=== PATIENT | female | born 1950 | race Caucasian/White ===

== ENCOUNTER 2018-04-30 12:39 | Emergency (ER) | payer MEDICARE ==
[2018-04-30] MEDS ORDERED: Morphine 4 MG/ML VIAL ONE ×2 (13:07→14:11)
--- NOTE | 2018-04-30 13:27 | RAD ---
RIGHT KNEE 4 VIEWS: Date: 04/30/18 PROVIDED CLINICAL HISTORY: Right knee pain status post injury. FINDINGS: There is no evidence for fracture or other acute osseous abnormality. Degenerative changes are seen. If there is persistent clinical concern, conservative management and follow-up imaging are advised. IMPRESSION: As above. POS: TPC
== END 2018-04-30 14:40 | disposition home or self-care (01) ==
LOC: MADERS 12:39
DX: S80.01XA Contusion of right knee, initial encounter (principal); M19.90 Unspecified osteoarthritis, unspecified site; F17.210 Nicotine dependence, cigarettes, uncomplicated; W17.89XA Other fall from one level to another, initial encounter
CPT/HCPCS: 96372; J2270

== ENCOUNTER 2018-07-14 09:21 | Outpatient (CLI) | payer MEDICARE ==
[2018-07-14 10:57] LABS: ALT (SGPT) 16 U/L (8-55); AST (SGOT) 17 U/L (5-34); Albumin 4.2 g/dL (3.4-4.8); Alkaline Phosphatase 113 U/L (40-150); Bilirubin, Direct 0.1 mg/dL (0.1-0.3); Bilirubin, Total 0.4 mg/dL (0.2-1.2); Cardiac Risk 4.3 (Less than 4.5); Cholesterol 269 mg/dl (< 200 Desired); HDL Cholesterol 62 mg/dL (>60 Neg Risk); LDL Cholesterol, Calculated 181 mg/dL; Protein, Total 6.8 g/dL (6.0-8.3); Triglycerides 128 mg/dL (Less than 150)
== END 2018-07-14 09:22 | disposition home or self-care (01) ==
LOC: MADLAB 09:21
PROVIDERS: ATTEND Specialist
DX: E78.2 Mixed hyperlipidemia (principal); I25.10 Atherosclerotic heart disease of native coronary artery without angina pectoris; Z79.899 Other long term (current) drug therapy
CPT/HCPCS: 36415; 80061; 80076

== ENCOUNTER 2018-10-09 10:02 | Outpatient (CLI) | payer MEDICARE ==
--- NOTE | 2018-10-09 12:50 | ULT ---
RENAL ULTRASOUND: HISTORY: Abnormal labs, chronic renal disease. FINDINGS: The right kidney measures 10.6 cm in length without focal mass or hydronephrosis. The left kidney is not visualized. The urinary bladder is unremarkable. IMPRESSION: 1. Unremarkable right kidney. 2. Nonvisualization of the left kidney likely due to marked atrophy. POS: [id number]
== END 2018-10-09 10:03 | disposition home or self-care (01) ==
LOC: MADULT 10:02
PROVIDERS: ATTEND Internal Medicine Nephrology
DX: N18.3 Chronic kidney disease, stage 3 (moderate) (principal)
CPT/HCPCS: 76775

== ENCOUNTER 2019-02-12 16:54 | Emergency (ER) | payer MEDICARE ==
[2019-02-12 18:37] LABS: #Basophils 0.1 thou/uL (0.0-0.2); #Eosinphils 0.1 thou/uL (0.0-0.7); #Lymphocytes 1.9 thou/uL (1.20-3.40); #Monocytes 0.7 thou/uL (0.11-0.59); #Neutrophils 5.9 thou/uL (1.40-6.50); %Basophils 0.8 % (0.0-1.0); %Lymphocytes 21.7 % (21.0-51.0); %Monocytes 8.2 % (0.0-10.0); %Neutrophils 68.3 % (42.0-75.0); Hemoglobin 11.5 g/dL (12.0-16.0); Mean Corpuscular HGB CONC 31.6 g/dL (32.0-36.0); Mean Corpuscular Hemoglobin 30.8 pg (27.0-31.0); Mean Corpuscular Volume 97.7 fL (78.0-98.0); Mean Platelet Volume 10.5 fL (7.4-10.4); Platelet Count 153 thou/uL (130-400); RBC Distribution Width 13.7 % (11.5-14.5); Red Blood Cell (RBC) Count 3.74 mill/uL (4.20-5.40); White Blood Cell (WBC) Count 8.6 thou/uL (4.8-10.8)
[2019-02-12 18:50] LABS: Glucose, Urine (Dipstick) 250 mg/dL (Negative)
[2019-02-12 18:51] LABS: ALT (SGPT) 15 U/L (8-55); AST (SGOT) 16 U/L (5-34); Albumin 4.2 g/dL (3.4-4.8); Alkaline Phosphatase 110 U/L (40-150); Anion Gap 15 mmol/L (10-20); BUN (Urea Nitrogen) 19 mg/dL (9.8-20.1); Bilirubin, Total 0.3 mg/dL (0.2-1.2); Calc. Creatinine Clearance 0 mL/min (70-130); Calcium 9.5 mg/dL (7.8-10.44); Carbon Dioxide 24 mmol/L (23-31); Chloride 107 mmol/L (98-107); Estimated GFR-MDRD 40; Globulin 2.8 g/dL (2.4-3.5); Glucose 93 mg/dL (80-115); Potassium 4.4 mmol/L (3.5-5.1); Sodium 142 mmol/L (136-145)
[2019-02-12 18:53] LABS: Clarity Hazy (Clear)
[2019-02-12 18:54] LABS: Leukocyte Unable to Interpret (Negative); Nitrite Unable to Interpret (Negative); Protein, Urine (Dipstick) Unable to Interpret mg/dL (Neg-Trace); Specific Gravity, Urine 1.004 (1.002-1.036)
[2019-02-12 18:55] LABS: Bilirubin Unable to Interpret (Negative); Blood, Urine Unable to Interpret (Negative); Urobilinogen UNABLE TO INTERPRET mg/dL (0.2-1.0); WBC/HPF 21-50 HPF (0-3)
[2019-02-12 18:56] LABS: Bacteria/HPF 2+ HPF (None Seen); Squamous Epithelial 0-3 HPF (0-3)
[2019-02-12] MEDS ORDERED: cefTRIAXone\\ROCEPHIN 1 GM VIAL ONE (19:19)
[2019-02-12] MEDS ORDERED: Lidocaine 2% 20 ml MDV ONE (19:20)
== END 2019-02-12 19:44 | disposition home or self-care (01) ==
LOC: MADERS 16:54
DX: N39.0 Urinary tract infection, site not specified (principal); M06.9 Rheumatoid arthritis, unspecified; I73.9 Peripheral vascular disease, unspecified; F17.210 Nicotine dependence, cigarettes, uncomplicated; Z79.01 Long term (current) use of anticoagulants; Z79.899 Other long term (current) drug therapy; Z79.51 Long term (current) use of inhaled steroids
CPT/HCPCS: 36415; 81003; 81015; 85025; 87077; 87086; 96372; J0696; J2001

== ENCOUNTER 2019-03-29 23:44 | Emergency (ER) | payer MEDICARE ==
[2019-03-29] MEDS ORDERED: Nitroglycerin 0.4 MG TAB 1 EACH ONE (23:53)
[2019-03-29] MEDS ORDERED: Aspirin Chewable 81 MG TAB ONE (23:53)
[2019-03-30] MEDS ORDERED: Nitroglycerin 2% Ointment 1 INCH/1 GM Packet ONE (00:05)
[2019-03-30 00:25] LABS: ALT (SGPT) 17 U/L (8-55); AST (SGOT) 20 U/L (5-34); Albumin 4.1 g/dL (3.4-4.8); Alkaline Phosphatase 114 U/L (40-150); Anion Gap 15 mmol/L (10-20); BUN (Urea Nitrogen) 17 mg/dL (9.8-20.1); Bilirubin, Total 0.2 mg/dL (0.2-1.2); Calc. Creatinine Clearance 0 mL/min (70-130); Calcium 9.2 mg/dL (7.8-10.44); Carbon Dioxide 21 mmol/L (23-31); Chloride 107 mmol/L (98-107); Estimated GFR-MDRD 41; Globulin 2.9 g/dL (2.4-3.5); Glucose 99 mg/dL (80-115); Sodium 139 mmol/L (136-145)
[2019-03-30 00:34] LABS: #Basophils 0.1 thou/uL (0.0-0.2); #Eosinphils 0.2 thou/uL (0.0-0.7); #Lymphocytes 2.9 thou/uL (1.20-3.40); #Monocytes 0.7 thou/uL (0.11-0.59); %Basophils 1.5 % (0.0-1.0); %Eosinophils 2.4 % (0.0-10.0); %Lymphocytes 36.2 % (21.0-51.0); %Monocytes 9.2 % (0.0-10.0); %Neutrophils 50.7 % (42.0-75.0); Hemoglobin 11.8 g/dL (12.0-16.0); Mean Corpuscular HGB CONC 33.3 g/dL (32.0-36.0); Mean Corpuscular Volume 96.2 fL (78.0-98.0); Mean Platelet Volume 10.9 fL (7.4-10.4); Platelet Count 148 thou/uL (130-400); RBC Distribution Width 13.5 % (11.5-14.5); Red Blood Cell (RBC) Count 3.69 mill/uL (4.20-5.40); White Blood Cell (WBC) Count 7.9 thou/uL (4.8-10.8)
[2019-03-30] MEDS ORDERED: Nitroglycerin 0.4 MG TAB 1 EACH ONE (01:42)
--- NOTE | 2019-03-30 07:35 | RAD ---
Chest one view HISTORY: Small bowel obstruction. Dyspnea. COMPARISON: 02/02/2014. FINDINGS: Cardiac silhouette is magnified by projection and upper limits of normal in size. Pulmonary vasculature is also upper limits of normal. Mediastinum is midline. No lobar consolidation or evidence of pneumothorax. IMPRESSION: Borderline pulmonary vascular congestion. No florid edema is evident.
== END 2019-03-30 01:43 | disposition short-term general hospital (02) ==
LOC: MADERS 23:44
DX: R07.2 Precordial pain (principal); M06.9 Rheumatoid arthritis, unspecified; F17.210 Nicotine dependence, cigarettes, uncomplicated; Z79.899 Other long term (current) drug therapy; Z79.51 Long term (current) use of inhaled steroids
CPT/HCPCS: 36415; 71045; 80053; 83880; 84484; 85025; 93005

== ENCOUNTER 2019-07-30 23:46 | Emergency (ER) | payer MEDICARE ==
[2019-07-30] MEDS ORDERED: cefTRIAXone\\ROCEPHIN 1 GM VIAL ONE (23:59)
== END 2019-07-31 00:20 | disposition home or self-care (01) ==
LOC: MADERS 23:46
DX: N39.0 Urinary tract infection, site not specified (principal); M06.9 Rheumatoid arthritis, unspecified; M79.7 Fibromyalgia; F17.210 Nicotine dependence, cigarettes, uncomplicated; Z79.899 Other long term (current) drug therapy; Z79.01 Long term (current) use of anticoagulants
CPT/HCPCS: 96372; 99283; J0696

== ENCOUNTER 2020-07-16 17:12 | Emergency (ER) | payer MEDICARE ==
[2020-07-16 17:56] LABS: Bilirubin Negative (Negative); Blood, Urine Negative (Negative); Glucose, Urine (Dipstick) Negative (Negative); Ketone, Urine Negative (Negative); Leukocyte Negative (Negative); Nitrite Positive (Negative); Protein, Urine (Dipstick) 30 mg/dL (Neg-Trace); Urobilinogen 0.2 mg/dL (Less than 2); pH, Urine 5.5 (5.0-9.0)
[2020-07-16 17:57] LABS: Clarity Hazy (Clear); Specific Gravity, Urine 1.025 (1.002-1.036)
[2020-07-16 18:00] LABS: Bacteria/HPF 3+ HPF (None Seen); RBC/HPF 0-3 HPF (0-3)
[2020-07-16 18:15] LABS: #Basophils 0.1 thou/uL (0.0-0.2); #Eosinphils 0.1 thou/uL (0.0-0.7); #Lymphocytes 1.8 thou/uL (1.20-3.40); #Neutrophils 8.2 thou/uL (1.40-6.50); %Basophils 1.2 % (0.0-1.0); %Eosinophils 1.2 % (0.0-10.0); %Monocytes 8.4 % (0.0-10.0); %Neutrophils 73.2 % (42.0-75.0); Anisocytosis SLIGHT = 6-15 cells (100X) (0-5/hpf); Hemoglobin 11.4 g/dL (12.0-16.0); Hypochromia SLIGHT = 6-15 cells (100X) (0-5/hpf); Large Platelets SLIGHT; MDiff Complete? YES; Mean Corpuscular HGB CONC 31.7 g/dL (32.0-36.0); Mean Corpuscular Hemoglobin 30.1 pg (27.0-31.0); Mean Platelet Volume 12.2 fL (7.4-10.4); Microcytosis SLIGHT = 6-15 cells (100X) (0-5/hpf); Platelet Count 164 thou/uL (130-400); Platelet Morphology Comment Appears Adequate; RBC Distribution Width 14.3 % (11.5-14.5); Red Blood Cell (RBC) Count 3.78 mill/uL (4.20-5.40); Stomatocytes SLIGHT = 2-5 cells (100X) (0-1/hpf); White Blood Cell (WBC) Count 11.2 thou/uL (4.8-10.8)
[2020-07-16 18:24] LABS: ALT (SGPT) 28 U/L (8-55); AST (SGOT) 25 U/L (5-34); Albumin 4.4 g/dL (3.4-4.8); Alkaline Phosphatase 99 U/L (40-110); Anion Gap 15 mmol/L (10-20); BUN (Urea Nitrogen) 24 mg/dL (9.8-20.1); Bilirubin, Total 0.3 mg/dL (0.2-1.2); Calc. Creatinine Clearance 0 mL/min (70-130); Calcium 9.3 mg/dL (7.8-10.44); Carbon Dioxide 22 mmol/L (23-31); Chloride 108 mmol/L (98-107); Estimated GFR-MDRD 45; Glucose 102 mg/dL (80-115); Lipase 23 U/L (8-78); Potassium 3.9 mmol/L (3.5-5.1); Protein, Total 7.4 g/dL (6.0-8.3); Sodium 141 mmol/L (136-145)
[2020-07-16] MEDS ORDERED: cefTRIAXone\\ROCEPHIN 1 GM VIAL ONE (19:11)
[2020-07-16] MEDS ORDERED: Sodium Chloride 0.9% 100 ML ONE (19:11)
--- NOTE | 2020-07-16 19:11 | CT ---
CT ABDOMEN AND PELVIS WITHOUT CONTRAST: 07/16/20 HISTORY: Lower abdominal pain. FINDINGS: Absence of oral and IV contrast reduces the sensitivity for exam particularly for evaluation of solid organs and bowel. The lung bases are clear. No calcified gallstones are seen. A 12 mm left adrenal adenoma is stable co mpared to exam of 10/27/15. There is atrophy of the left kidney. No calculi are seen in either kidney, ureters, or the urinary bladder. No hydroureteronephrosis is noted on either size. No free air or free fluid is seen in the abdomen or pelvis. There are vascular calcifications without evidence of aneurysmal dilatation of the abdominal aorta. There are degenerative changes in the spin e. A right renal artery stent is present. A tiny low dense lesion in the left lobe of the liver is st able since 2015. The small bowel loops are not abnormally dilated. There is colonic diverticulosis with mild pericolon ic inflammatory change in the left lower quadrant. There is fecal material in the colon and rectum. T he uterus is present. IMPRESSION: 1. No CT evidence of urinary tract calculi or obstruction. 2. Atrophic left kidney. 3. Stable left adrenal adenoma. 4. Colonic diverticulosis with probable mild diverticulitis in the left lower quadrant. POS: OFF
== END 2020-07-16 19:35 | disposition home or self-care (01) ==
LOC: MADERS 17:12
DX: K57.92 Diverticulitis of intestine, part unspecified, without perforation or abscess without bleeding (principal); F17.210 Nicotine dependence, cigarettes, uncomplicated; Z79.899 Other long term (current) drug therapy
CPT/HCPCS: 74176; 80053; 81003; 81015; 83690; 85025; 87086; 96374; J0696; J3490

== ENCOUNTER 2021-06-26 11:32 | Outpatient (CLI) | payer MEDICARE | END 2021-06-26 11:33 | disposition home or self-care (01) | LOC: MADRAD 11:32 | PROVIDERS: ATTEND Internal Medicine Rheumatology | DX: M25.511 Pain in right shoulder (principal); M25.512 Pain in left shoulder; M25.561 Pain in right knee; M25.562 Pain in left knee; M17.0 Bilateral primary osteoarthritis of knee ==

== ENCOUNTER 2021-07-27 14:54 | Emergency (ER) | payer MEDICARE | END 2021-07-27 15:50 | disposition home or self-care (01) | LOC: MADERS 14:54 | DX: K12.1 Other forms of stomatitis (principal); M19.90 Unspecified osteoarthritis, unspecified site; F17.210 Nicotine dependence, cigarettes, uncomplicated; Z79.899 Other long term (current) drug therapy | CPT/HCPCS: 99282 ==

== ENCOUNTER 2022-10-30 16:40 | Outpatient (CLI) | payer MEDICARE | END 2022-10-30 16:41 | disposition home or self-care (01) | LOC: MADCT 16:40 | PROVIDERS: ATTEND Family Medicine | DX: R10.12 Left upper quadrant pain (principal); D69.6 Thrombocytopenia, unspecified; K57.30 Diverticulosis of large intestine without perforation or abscess without bleeding; R93.41 Abnormal radiologic findings on diagnostic imaging of renal pelvis, ureter, or bladder | CPT/HCPCS: 74176 ==

== ENCOUNTER 2023-01-09 11:47 | Outpatient (CLI) | payer MEDICARE | END 2023-01-09 11:48 | disposition home or self-care (01) | LOC: MADRAD 11:47 | PROVIDERS: ATTEND Family Medicine | DX: M54.50 Low back pain, unspecified (principal); M47.816 Spondylosis without myelopathy or radiculopathy, lumbar region | CPT/HCPCS: 72100 ==

== ENCOUNTER 2023-02-18 11:32 | Outpatient (CLI) | payer MEDICARE | END 2023-02-18 11:33 | disposition home or self-care (01) | LOC: MADCT 11:32 | PROVIDERS: ATTEND Family Medicine | DX: M54.41 Lumbago with sciatica, right side (principal); M48.061 Spinal stenosis, lumbar region without neurogenic claudication | CPT/HCPCS: 72131 ==

== ENCOUNTER 2023-08-01 20:24 | Emergency (ER) | payer MEDICARE ==
[2023-08-01] MEDS ORDERED: Orphenadrine Citrate 60 MG/2 ML VIAL ONE (21:08)
== END 2023-08-01 22:10 | disposition home or self-care (01) ==
LOC: MADERS 20:24
DX: M62.830 Muscle spasm of back (principal); G89.29 Other chronic pain; M54.50 Low back pain, unspecified; I10 Essential (primary) hypertension; M06.9 Rheumatoid arthritis, unspecified; I73.9 Peripheral vascular disease, unspecified; F17.210 Nicotine dependence, cigarettes, uncomplicated; E78.5 Hyperlipidemia, unspecified; M79.7 Fibromyalgia; Z79.899 Other long term (current) drug therapy; Z95.1 Presence of aortocoronary bypass graft
CPT/HCPCS: 96372; 99283; J2360

== ENCOUNTER 2025-08-10 13:06 | Emergency (ER) | payer MEDICARE | END 2025-08-10 14:16 | disposition home or self-care (01) | LOC: MADERS 13:06 | DX: R19.7 Diarrhea, unspecified (principal); I10 Essential (primary) hypertension; M06.9 Rheumatoid arthritis, unspecified; I73.9 Peripheral vascular disease, unspecified; M79.7 Fibromyalgia; E78.5 Hyperlipidemia, unspecified; F17.210 Nicotine dependence, cigarettes, uncomplicated; Z79.02 Long term (current) use of antithrombotics/antiplatelets; Z79.899 Other long term (current) drug therapy | CPT/HCPCS: 99283 ==

== ENCOUNTER 2025-08-13 09:39 | Outpatient (CLI) | payer MEDICARE ==
[2025-08-16 15:14] LABS: Adenovirus F 40-41 Not Detected (Not Detected); C. difficile toxin A+B Not Detected (Not Detected); Norovirus GI-GII Not Detected (Not Detected)
== END 2025-08-13 09:40 | disposition home or self-care (01) ==
LOC: MADLAB 09:39
PROVIDERS: ATTEND Family Medicine
DX: R19.7 Diarrhea, unspecified (principal)
CPT/HCPCS: 87507